=== PATIENT | female | born 1990 | race American Indian/Alaskan Native ===

== ENCOUNTER 2016-12-26 11:31 | Emergency (ER) | payer SELFPAY ==
[2016-12-26] MEDS ORDERED: NACL ONE (12:23)
[2016-12-26 12:46] LABS: Basophils % (Auto) 0.5 % (0.0-1.8); Eosinophils % (Auto) 0.4 % (0.0-4.3); Hematocrit 41.4 % (30.3-42.9); Hemoglobin 13.1 gm/dl (10.1-14.3); Mean Corpuscular HGB Conc 32 % (30-34); Mean Corpuscular Hemoglobin 24 pg (28-32); Mean Corpuscular Volume 76 fl (79-97); Platelet Count 185 K/mm3 (140-440); Red Blood Count 5.43 M/mm3 (3.65-5.03); White Blood Count 5.8 K/mm3 (4.5-11.0)
[2016-12-26 12:48] LABS: Alanine Aminotransferase 17 units/L (7-56); Albumin 4.4 g/dL (3.9-5); Albumin/Globulin Ratio 1.3 %; Alkaline Phosphatase 54 units/L (35-129); Anion Gap 19 mmol/L; BUN/Creatinine Ratio 14.28; Bilirubin,Total 0.6 mg/dL (0.1-1.2); Blood Urea Nitrogen 10 mg/dL (7-17); Calcium 9.2 mg/dL (8.4-10.2); Carbon Dioxide 20 mmol/L (22-30); Chloride 103.1 mmol/L (98-107); Glucose 80 mg/dL (65-100); Potassium 3.6 mmol/L (3.6-5.0); Sodium 138 mmol/L (137-145); Total Protein 7.8 g/dL (6.3-8.2)
[2016-12-26 22:35] VITALS: BP 124/62
[2016-12-26 23:06] LABS: Urine Drugs of Abuse Note Disclamer
[2016-12-26 23:21] LABS: Bacteria,Urine 1+ /HPF (Negative); Mucus,Urine 3+ /HPF
[2016-12-26 23:22] LABS: Bilirubin,Urine NEG (Negative); Blood,Urine NEG (Negative); Ketones,Urine 20 mg/dL (Negative); Leukocyte Esterase,Urine LG (Negative); Nitrite,Urine NEG (Negative); Urobilinogen,Urine < 2.0 mg/dL (<2.0)
== END 2016-12-26 23:43 | disposition left against medical advice (07) ==
LOC: ED 11:31
DX: E07.9 Disorder of thyroid, unspecified (principal); R53.83 Other fatigue; R51 Headache; D64.9 Anemia, unspecified; J45.909 Unspecified asthma, uncomplicated; Z53.21 Procedure and treatment not carried out due to patient leaving prior to being seen by health care provider
CPT/HCPCS: 36415; 80053; 80307; 81001; 84436; 84443; 84481; 84703; 85025

== ENCOUNTER 2017-04-28 20:01 | Emergency (ER) | payer SELFPAY ==
[2017-04-28 20:37] VITALS: BP 115/82
--- NOTE | 2017-04-29 04:19 | ED Elopement Review ---
ED Pt Elopement review - Call Back decision Pt Call Back Decision: No action required (I signed up for patient prior to evaluation. Upon entering the room to examine patient, patient had apparently eloped prior to assessment. No visualization or examination performed, on this patient.)
== END 2017-04-28 22:35 | disposition left against medical advice (07) ==
LOC: ED 20:01
DX: Z53.21 Procedure and treatment not carried out due to patient leaving prior to being seen by health care provider (principal)